=== PATIENT | male | born 1975 | race Caucasian/White ===

== ENCOUNTER 2021-09-28 14:53 | Outpatient (CLI) | payer OTHER, SELFPAY ==
[2021-09-28 21:55] LABS: Chloride* 105 mmol/L (96-114)
[2021-09-28 21:56] LABS: Potassium* 4.3 mmol/L (3.6-5.1); Sodium* 137 mmol/L (135-149)
[2021-09-28 21:58] LABS: Creatinine* 0.8 mg/dL (0.5-1.5); Estimated Glomerular Filt Rate 110 ml/min
[2021-09-28 21:59] LABS: Blood Urea Nitrogen* 23 mg/dL (5-24); Calcium* 9.2 mg/dL (8.4-10.6); Carbon Dioxide* 26 mmol/L (20-32); Glucose* 150 mg/dL (60-115)
== END 2021-09-28 14:54 | disposition home or self-care (01) ==
LOC: FRMREF 14:53
PROVIDERS: PCP Family Medicine; Visit Provider Family Medicine
DX: I10 Essential (primary) hypertension (principal); R73.09 Other abnormal glucose; F90.9 Attention-deficit hyperactivity disorder, unspecified type
CPT/HCPCS: 80048

== ENCOUNTER 2022-04-21 12:10 | Outpatient (CLI) | payer OTHER, SELFPAY ==
[2022-04-21 21:39] LABS: Albumin* 4.4 g/dL (3.3-5.0); Chloride* 101 mmol/L (96-114)
[2022-04-21 21:40] LABS: Sodium* 138 mmol/L (135-149)
[2022-04-21 21:41] LABS: Cholesterol* 224 mg/dL (90-199)
[2022-04-21 21:42] LABS: Alanine Aminotransferase* 25 U/L (4-50); Alkaline Phosphatase* 57 U/L (40-150); Aspartate Amino Transferase* 26 U/L (12-35); Bilirubin Total* 0.6 mg/dL (0.1-1.5); Blood Urea Nitrogen* 23 mg/dL (5-24); Carbon Dioxide* 31 mmol/L (20-32); Creatinine* 0.8 mg/dL (0.5-1.5); Estimated Glomerular Filt Rate 109 ml/min; Glucose* 104 mg/dL (60-115); Total Protein* 7.5 g/dL (6.0-8.3); Triglycerides* 76 mg/dL (40-149)
[2022-04-21 21:43] LABS: Calcium* 9.5 mg/dL (8.4-10.6); HDL Cholesterol* 39 mg/dL (>=40); LDL Cholesterol Calculated 170 mg/dL (<100)
[2022-04-21 21:47] LABS: Creatinine Urine 168.3 mg/dL
[2022-04-21 21:51] LABS: Microalbumin Creatinine Ratio 0 mg/g (0-30); Microalbumin Urine 1 mg/dL
== END 2022-04-21 12:11 | disposition home or self-care (01) ==
PROVIDERS: PCP Family Medicine; Visit Provider Family Medicine
DX: I10 Essential (primary) hypertension (principal); R73.03 Prediabetes; Z13.6 Encounter for screening for cardiovascular disorders
CPT/HCPCS: 80053; 80061; 82043; 82570

== ENCOUNTER 2023-10-06 12:53 | Outpatient (CLI) | payer OTHER, SELFPAY | END 2023-10-06 12:54 | disposition home or self-care (01) | LOC: NFLDREF 10-07 09:18 | PROVIDERS: PCP Physician Assistant Medical; Referring Provider Family Medicine; Visit Provider Physician Assistant Medical | DX: E78.2 Mixed hyperlipidemia (principal); I10 Essential (primary) hypertension; R73.03 Prediabetes; F90.2 Attention-deficit hyperactivity disorder, combined type | CPT/HCPCS: 80053; 80061; 84443 ==

== ENCOUNTER 2024-09-27 08:50 | Outpatient (CLI) | payer OTHER, SELFPAY | END 2024-09-27 08:51 | disposition home or self-care (01) | LOC: NFLDREF 09-29 08:31 | PROVIDERS: PCP Physician Assistant Medical; Referring Provider Physician Assistant Medical; Visit Provider Physician Assistant Medical | DX: E78.2 Mixed hyperlipidemia (principal); I10 Essential (primary) hypertension; N52.9 Male erectile dysfunction, unspecified; F90.2 Attention-deficit hyperactivity disorder, combined type; Z12.5 Encounter for screening for malignant neoplasm of prostate | CPT/HCPCS: 80053; 80061; 84443; G0103 ==